=== PATIENT | female | born 1995 | race African-American/Black ===

== ENCOUNTER 2017-08-12 12:09 | Emergency (ER) | payer OTHER ==
[~2017-08-12] VITALS: Ht 185.4 cm; Wt 125.2 kg
[2017-08-12] MEDS ORDERED: BACTRIM DS TAB1 EACH PO (13:31)
[2017-08-12 15:17] VITALS: BP 123/84
== END 2017-08-12 14:45 | disposition home or self-care (01) ==
LOC: ER 12:09
DX: N61.1 Abscess of the breast and nipple (principal)